=== PATIENT | female | born 1995 | race Caucasian/White ===

== ENCOUNTER 2016-04-23 18:36 | Emergency (ER) | payer OTHER ==
[2016-04-23 20:00] LABS: HEMOGLOBIN 15.4 gm/dl (12.3-15.3); RED BLOOD COUNT 5.09 M/UL (4.00-5.10); WHITE BLOOD COUNT 8.8 K/UL (4.5-11.0)
[2016-04-23 20:22] LABS: BUN/CREATININE RATIO 21 (0-10)
[2016-04-23 23:41] LABS: BUN/CREATININE RATIO 21 (0-10)
[2016-08-16] MEDS ORDERED: NOVOLOG 10100 UNITS/ SQ (01:31)
[2016-08-18] MEDS ORDERED: LEVEMIR100 UNIT/1 SQ (11:16)
[2016-08-18] MEDS ORDERED: PEPCID20 MG PO (11:19)
[2016-08-25] MEDS ORDERED: LEVEMIR100 UNIT/1 SC (00:23)
[2016-08-25] MEDS ORDERED: NOVOLOG 10100 UNITS/ SC (00:24)
[2016-08-28] MEDS ORDERED: NOVOLOG 10100 UNITS/ INJ ×2 (18:56→18:58)
[2016-08-28] MEDS ORDERED: BASAGLAR SQ ×2 (19:02→19:03)
[2016-08-28] MEDS ORDERED: NOVOLOG FL100 UNIT/1 SQ (19:04)
== END 2016-04-24 01:20 | disposition home or self-care (01) ==
LOC: ER1 18:36
PROVIDERS: Physician Assistant; Student in an Organized Health Care Education/Training Program
DX: F41.9 Anxiety disorder, unspecified (principal); E10.10 Type 1 diabetes mellitus with ketoacidosis without coma; E86.0 Dehydration; Z88.8 Allergy status to other drugs, medicaments and biological substances
CPT/HCPCS: 36415; 36600; 71010; 80048; 80053; 80307; 81001; 82009; 82550; 82553; 82800; 83690; 83874; 84443; 84484; 84703; 85025; 93005; 96361; 96374; 99284; J2405; J7030

== ENCOUNTER 2016-04-25 10:18 | Emergency (ER) | payer OTHER ==
[2016-04-25 11:02] LABS: HEMOGLOBIN 15.8 gm/dl (12.3-15.3); RED BLOOD COUNT 5.23 M/UL (4.00-5.10)
[2016-04-25 11:04] LABS: WHITE BLOOD COUNT 18.7 K/UL (4.5-11.0)
[2016-08-16] MEDS ORDERED: NOVOLOG 10100 UNITS/ SQ (01:31)
[2016-08-18] MEDS ORDERED: LEVEMIR100 UNIT/1 SQ (11:16)
[2016-08-18] MEDS ORDERED: PEPCID20 MG PO (11:19)
[2016-08-25] MEDS ORDERED: LEVEMIR100 UNIT/1 SC (00:23)
[2016-08-25] MEDS ORDERED: NOVOLOG 10100 UNITS/ SC (00:24)
[2016-08-28] MEDS ORDERED: NOVOLOG 10100 UNITS/ INJ ×2 (18:56→18:58)
[2016-08-28] MEDS ORDERED: BASAGLAR SQ ×2 (19:02→19:03)
[2016-08-28] MEDS ORDERED: NOVOLOG FL100 UNIT/1 SQ (19:04)
== END 2016-04-25 15:02 ==
LOC: ER1 10:18
PROVIDERS: Physician Assistant
DX: E13.10 Other specified diabetes mellitus with ketoacidosis without coma (principal); F17.200 Nicotine dependence, unspecified, uncomplicated; Z88.8 Allergy status to other drugs, medicaments and biological substances
CPT/HCPCS: 36415; 80053; 81001; 82009; 82803; 82962; 85025; 93005; 96361; 96374; 96375; 99285; J2405

== ENCOUNTER 2016-05-09 16:37 | Emergency (ER) | payer OTHER ==
[2016-05-09 19:43] LABS: HEMOGLOBIN 13.5 gm/dl (12.3-15.3); RED BLOOD COUNT 4.5 M/UL (4.00-5.10)
[2016-05-09 19:56] LABS: BUN/CREATININE RATIO 20 (0-10)
[2016-08-16] MEDS ORDERED: NOVOLOG 10100 UNITS/ SQ (01:31)
[2016-08-18] MEDS ORDERED: LEVEMIR100 UNIT/1 SQ (11:16)
[2016-08-18] MEDS ORDERED: PEPCID20 MG PO (11:19)
[2016-08-25] MEDS ORDERED: LEVEMIR100 UNIT/1 SC (00:23)
[2016-08-25] MEDS ORDERED: NOVOLOG 10100 UNITS/ SC (00:24)
[2016-08-28] MEDS ORDERED: NOVOLOG 10100 UNITS/ INJ ×2 (18:56→18:58)
[2016-08-28] MEDS ORDERED: BASAGLAR SQ ×2 (19:02→19:03)
[2016-08-28] MEDS ORDERED: NOVOLOG FL100 UNIT/1 SQ (19:04)
== END 2016-05-09 20:47 | disposition home or self-care (01) ==
LOC: ER1 16:37
PROVIDERS: Physician Assistant
DX: N39.0 Urinary tract infection, site not specified (principal); E11.9 Type 2 diabetes mellitus without complications; F17.210 Nicotine dependence, cigarettes, uncomplicated; Z79.4 Long term (current) use of insulin
CPT/HCPCS: 36415; 80053; 81001; 82009; 83690; 84703; 85025; 87077; 87086; 87186; 99284

== ENCOUNTER 2016-06-15 16:50 | Emergency (ER) | payer OTHER ==
[2016-06-15 18:42] LABS: HEMOGLOBIN 13.9 gm/dl (12.3-15.3); RED BLOOD COUNT 4.52 M/UL (4.00-5.10); WHITE BLOOD COUNT 10.1 K/UL (4.5-11.0)
[2016-06-15 19:04] LABS: BUN/CREATININE RATIO 29 (0-10)
[2016-08-16] MEDS ORDERED: NOVOLOG 10100 UNITS/ SQ (01:31)
[2016-08-18] MEDS ORDERED: LEVEMIR100 UNIT/1 SQ (11:16)
[2016-08-18] MEDS ORDERED: PEPCID20 MG PO (11:19)
[2016-08-25] MEDS ORDERED: LEVEMIR100 UNIT/1 SC (00:23)
[2016-08-25] MEDS ORDERED: NOVOLOG 10100 UNITS/ SC (00:24)
[2016-08-28] MEDS ORDERED: NOVOLOG 10100 UNITS/ INJ ×2 (18:56→18:58)
[2016-08-28] MEDS ORDERED: BASAGLAR SQ ×2 (19:02→19:03)
[2016-08-28] MEDS ORDERED: NOVOLOG FL100 UNIT/1 SQ (19:04)
== END 2016-06-15 22:09 | disposition home or self-care (01) ==
LOC: ER1 16:50
PROVIDERS: Specialist/Technologist Athletic Trainer
DX: E10.65 Type 1 diabetes mellitus with hyperglycemia (principal); R82.4 Acetonuria; F17.200 Nicotine dependence, unspecified, uncomplicated; Z88.8 Allergy status to other drugs, medicaments and biological substances
CPT/HCPCS: 36415; 71010; 80053; 81001; 82009; 82803; 83605; 83690; 84703; 85025; 87040; 87086; 96360; 96361; 99285

== ENCOUNTER 2016-07-18 13:11 | Emergency (ER) | payer OTHER ==
[2016-07-18 14:25] LABS: HEMOGLOBIN 14.2 gm/dl (12.3-15.3); RED BLOOD COUNT 4.73 M/UL (4.00-5.10); WHITE BLOOD COUNT 11.8 K/UL (4.5-11.0)
[2016-07-18 14:45] LABS: BUN/CREATININE RATIO 21 (0-10)
[2016-08-16] MEDS ORDERED: NOVOLOG 10100 UNITS/ SQ (01:31)
[2016-08-18] MEDS ORDERED: LEVEMIR100 UNIT/1 SQ (11:16)
[2016-08-18] MEDS ORDERED: PEPCID20 MG PO (11:19)
[2016-08-25] MEDS ORDERED: LEVEMIR100 UNIT/1 SC (00:23)
[2016-08-25] MEDS ORDERED: NOVOLOG 10100 UNITS/ SC (00:24)
[2016-08-28] MEDS ORDERED: NOVOLOG 10100 UNITS/ INJ ×2 (18:56→18:58)
[2016-08-28] MEDS ORDERED: BASAGLAR SQ ×2 (19:02→19:03)
[2016-08-28] MEDS ORDERED: NOVOLOG FL100 UNIT/1 SQ (19:04)
== END 2016-07-18 19:05 | disposition left against medical advice (07) ==
LOC: ER1 13:11 → ZEROF 15:40 → ER1 15:40 → ZEROF 15:40
PROVIDERS: Physician Assistant Medical
DX: E10.10 Type 1 diabetes mellitus with ketoacidosis without coma (principal); F32.9 Major depressive disorder, single episode, unspecified; F41.9 Anxiety disorder, unspecified; F17.210 Nicotine dependence, cigarettes, uncomplicated; Z79.4 Long term (current) use of insulin; Z88.8 Allergy status to other drugs, medicaments and biological substances; Z79.899 Other long term (current) drug therapy
CPT/HCPCS: 36415; 80053; 81001; 82009; 82150; 82962; 83690; 84439; 84443; 84703; 85025; 87086; 96361; 96374; 96375; 96376; 99284; G0378; J2405; J7030

== ENCOUNTER 2016-08-11 08:34 | Inpatient (IN) | payer OTHER ==
[~2016-08-11] VITALS: Ht 160 cm; Wt 62.1 kg
[2016-08-11 09:51] LABS: HEMOGLOBIN 12.4 gm/dl (12.3-15.3); RED BLOOD COUNT 4.13 M/UL (4.00-5.10); WHITE BLOOD COUNT 7.4 K/UL (4.5-11.0)
[2016-08-11 10:06] LABS: BUN/CREATININE RATIO 11 (0-10)
[2016-08-11] MEDS ORDERED: NOVOLOG 10100 UNITS1 INJ (15:04)
[2016-08-11] MEDS ORDERED: LEVEMIR100 UNIT/1 INJ (15:05)
[2016-08-11 15:50] LABS: BUN/CREATININE RATIO 12 (0-10)
[2016-08-11 17:22] LABS: BUN/CREATININE RATIO 10 (0-10)
[2016-08-11 23:09] LABS: BUN/CREATININE RATIO 8 (0-10)
[2016-08-16] MEDS ORDERED: NOVOLOG 10100 UNITS/ SQ (01:31)
[2016-08-18] MEDS ORDERED: LEVEMIR100 UNIT/1 SQ (11:16)
[2016-08-18] MEDS ORDERED: PEPCID20 MG PO (11:19)
[2016-08-25] MEDS ORDERED: LEVEMIR100 UNIT/1 SC (00:23)
[2016-08-25] MEDS ORDERED: NOVOLOG 10100 UNITS/ SC (00:24)
[2016-08-28] MEDS ORDERED: NOVOLOG 10100 UNITS/ INJ ×2 (18:56→18:58)
[2016-08-28] MEDS ORDERED: BASAGLAR SQ ×2 (19:02→19:03)
[2016-08-28] MEDS ORDERED: NOVOLOG FL100 UNIT/1 SQ (19:04)
== END 2016-08-12 00:07 | disposition left against medical advice (07) | DRG 639 ==
LOC: ER1 08:34 → ZEROF 11:18 → CCU 14:42
PROVIDERS: Physician Assistant; ADMIT Internal Medicine
DX: E10.10 Type 1 diabetes mellitus with ketoacidosis without coma (principal); F41.9 Anxiety disorder, unspecified; F32.9 Major depressive disorder, single episode, unspecified; F17.210 Nicotine dependence, cigarettes, uncomplicated; Z88.8 Allergy status to other drugs, medicaments and biological substances; Z79.4 Long term (current) use of insulin
CPT/HCPCS: 36415; 71010; 80048; 80053; 81001; 82009; 82803; 82962; 83036; 84703; 85025; 87040; 96360; 96372; 99284; J1815; J7030; J7050

== ENCOUNTER 2021-09-24 11:20 | Emergency (ER) | payer OTHER ==
[~2021-09-24 11:20] MED LIST: AMOXICILLIN500 MG PO; BASAGLAR SQ; BENADRYL 25MG C25 MG PO; DIFLUCAN150 MG PO; LEVEMIR100 UNIT/1 INJ; LEVEMIR100 UNIT/1 SC; LEVEMIR100 UNIT/1 SQ; NOVOLOG 10100 UNITS/ INJ; NOVOLOG 10100 UNITS/ SC; NOVOLOG 10100 UNITS/ SQ; NOVOLOG 10100 UNITS1 INJ; NOVOLOG FL100 UNIT/1 SQ; PEPCID20 MG PO; ROBITUSSIN100 MG/51 PO; ZOFRAN ODT 4 MG4 MG SL; ZOFRAN4 MG PO
[2021-09-24 13:05] LABS: BUN/CREATININE RATIO 25 (0-10)
[2021-09-24 13:23] LABS: HEMOGLOBIN 13.7 gm/dl (12.3-15.3); RED BLOOD COUNT 4.59 M/UL (4.00-5.10); WHITE BLOOD COUNT 10.2 K/UL (4.5-11.0)
== END 2021-09-24 14:51 | disposition home or self-care (01) ==
LOC: ER1 11:20
PROVIDERS: Family Medicine
DX: E10.9 Type 1 diabetes mellitus without complications (principal); Z87.891 Personal history of nicotine dependence
CPT/HCPCS: 80053; 81001; 82009; 82803; 82962; 85025; 99284